=== PATIENT | female | born 1980 | race Caucasian/White ===

== ENCOUNTER 2017-08-18 20:54 | Emergency (ER) | payer SELFPAY ==
[2017-08-18 23:22] LABS: Hematocrit 41 % (35-47); Mean Corpuscular HGB Conc 34 g/dl (31-36); Mean Corpuscular Hemoglobin 29 pg (27-31); Mean Corpuscular Volume 86 fL (80-97); Mean Platelet Volume 10 um3 (7.4-10.4); Red Cell Distribution Width 13 % (10.5-15); White Blood Count 11.8 10^3/ul (3.5-10.8)
[2017-08-18] MEDS ORDERED: Albuterol/Ipratropium NEB.SOL* Albuterol 2.5 MG/Ipratropium 0.5 MG 3 ML INH ONE (23:27)
[2017-08-18 23:38] LABS: Albumin 4.1 g/dL (3.2-5.2); BUN/Creatinine Ratio 13.3 (8-20); Calcium 9.1 mg/dL (8.6-10.3); EGFR African American 89.6 (>60); EGFR Non-African American 69.7 (>60); Globulin 3.1 g/dL (2-4); Potassium 3.8 mmol/L (3.5-5.0); Total Bilirubin 1.1 mg/dL (0.2-1.0); Total Protein 7.2 g/dL (6.4-8.9)
[2017-08-19] MEDS: NS 0.9% 1000 ML* 2,000 ML IV ONE ×2 (00:05→02:27)
[2017-08-19] MEDS ORDERED: Acetaminophen TAB* 325 MG PO ONE (01:11)
[2017-08-19] MEDS ORDERED: Morphine INJ* 4 MG/ML 1 ML CARPUJECT IV ONE (01:11)
[2017-08-19 01:14] LABS: C Reactive Protein 19.98 mg/L (< 5.00)
[2017-08-19] MEDS ORDERED: Levofloxacin 750 MG IVPREMIX(* 750 MG/150 ML BAG IVPB ONE (01:15)
[2017-08-19] MEDS ORDERED: HYDROmorphone INJ* 1 MG/ML CARPUJECT SYRINGE IV SLOW PU ONE (02:56)
[2017-08-19 03:39] VITALS: BP 108/59
--- NOTE | 2017-08-19 03:45 | ED ---
Laurence Buck Alfonso, scribed for Nasima Cerda MD on 08/18/17 at 2330 . HPI Febrile Illness - HPI Summary HPI Summary: This patient is a 37 year old F presenting to [facility] accompanied by boyfriend with a chief complaint of febrile illness since 4 days ago. The patient rates the pain 8/10 in severity. Symptoms alleviated by nothing. Patient reports chills, diaphoresis, N/V/D, coughing, headache, CP (heaviness and sharp since 1230 today), and palpitations. 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 She denies recent travels and BCP use. Tobacco abuse disorder. PMHx includes asthma and HTN. FHX blood clots and CAD. - History of Current Complaint Chief Complaint: EDChestPainROMI Hx Obtained From: Patient Onset/Duration: Started Days Ago - 4 Timing: Constant Current Severity: Moderate Pain Intensity: 8 Pain Scale Used: 0-10 Numeric Alleviating Factors: Nothing Associated Signs and Symptoms: Other: - reports chills, diaphoresis, N/V/D, coughing, headache, CP (heaviness and sharp since 1230 today), and palpitations - Allergy/Home Medications Allergies/Adverse Reactions: Allergies Allergy/AdvReac Type Severity Reaction Status Date / Time No Known Allergies Allergy Verified 08/18/17 21:10 PMH/Surg Hx/FS Hx/Imm Hx Endocrine/Hematology History: Reports: Hx Diabetes - borderline Cardiovascular History: Reports: Hx Hypertension, Other Cardiovascular Problems/ Disorders - ARRHYTHMIA Respiratory History: Reports: Hx Asthma - Surgical History Surgery Procedure, Year, and Place: stents for kidney stones. intestinal mesh Infectious Disease History: No Infectious Disease History: Denies: Traveled Outside the [place] in Last 30 Days - Family History Known Family History: Positive: Cardiac Disease - mother, brother, sister, Other - blood clots (grandmother) - Social History Alcohol Use: Rare Substance Use Type: Reports: None Smoking Status (MU): Current Every Day Smoker Review of Systems Positive: Fever, Chills, Skin Diaphoresis Positive: Palpitations, Chest Pain Positive: Cough Positive: Vomiting, Diarrhea, Nausea Positive: Headache All Other Systems Reviewed And Are Negative: Yes Physical Exam - Summary Physical Exam Summary: General: Mildly ill appearing, no pain distress, mildly uncomfortable. Skin: Warm, Skin Color Reflects Adequate Perfusion, Dry Eyes: EOMI, NIKITA ENT: Pharynx normal, TMs normal Neck: Supple, nontender Respiratory: CTA, breath sounds present, no rhonchi, no wheezes, no rales Cardiovascular: RRR, no murmur, no rub, no gallop Abdomen: Soft, nontender, Non-distended, no guarding, no rebound Bowel: Present Musculoskeletal: KRYSTA, No edema Neuro: Sensory/motor intact, A&Ox3, CN intact 2-12 Psych: Affect/mood appropriate Triage Information Reviewed: Yes Vital Signs On Initial Exam: Initial Vitals Temp Pulse Resp BP Pulse Ox 99.2 F 106 20 133/85 95 08/18/17 21:09 08/18/17 21:09 08/18/17 21:09 08/18/17 21:09 08/18/17 21:09 Vital Signs Reviewed: Yes Diagnostics - Vital Signs Vital Signs Temp Pulse Resp BP Pulse Ox 08/18/17 23:24 101.0 F 08/18/17 23:22 100 97 08/18/17 23:19 122/79 08/18/17 21:09 99.2 F 106 20 133/85 95 - Laboratory Lab Results: Lab Results 08/18/17 Range/Units 23:11 WBC 11.8 H (3.5-10.8) 10^3/ul RBC 4.80 (4.0-5.4) 10^6/ul Hgb 14.0 (12.0-16.0) g/dl Hct 41 (35-47) % MCV 86 (80-97) fL MCH 29 (27-31) pg MCHC 34 (31-36) g/dl RDW 13 (10.5-15) % Plt Count 201 (150-450) 10^3/ul MPV 10 (7.4-10.4) um3 Neut % (Auto) 86.2 H (38-83) % Lymph % (Auto) 8.1 L (25-47) % [place] % (Auto) 4.5 (1-9) % Eos % (Auto) 0.5 (0-6) % Baso % (Auto) 0.7 (0-2) % Absolute Neuts (auto) 10.1 H (1.5-7.7) 10^3/ul Absolute Lymphs (auto) 1.0 (1.0-4.8) 10^3/ul Absolute Monos (auto) 0.5 (0-0.8) 10^3/ul Absolute Eos (auto) 0.1 (0-0.6) 10^3/ul Absolute Basos (auto) 0.1 (0-0.2) 10^3/ul Absolute Nucleated RBC 0.01 10^3/ul Nucleated RBC % 0 Result Diagrams: 08/18/17 23:11 08/18/17 23:11 Lab Statement: Any lab studies that have been ordered have been reviewed, and results considered in the medical decision making process. - Radiology CXR Radiology Interpretation Completed By: ED Physician - Negative - EKG 2102 Cardiac Rate: NL - BPM 89 EKG Rhythm: Sinus Rhythm EKG Interpretation: NAD Course/Dx - Course Course Of Treatment: this 37 yo female with asthma and tob use did clean out a house with mice/rat feces. Pt started with diarrhea and then fever,cough and headache. In the differential would be legionella (neg urine today), tularemia , hantavirus and salmonella. Cultures are pending, in general there seems to be some overlap with quinolones in salmonella and tularemia so her respiratory symptms with fever will be treated with levaquin and pt will followup with pmd - Diagnoses Provider Diagnoses: Bronchitis, Fever Discharge - Discharge Plan Condition: Stable Disposition: HOME Prescriptions: HYDROcodone/ACETAMIN 5-325 MG* [Seeley 5-325 TAB*] 2 tab PO Q8H PRN #18 tab MDD 3 PRN Reason: Pain Levofloxacin TAB* [Levaquin TAB*] 750 mg PO DAILY #6 tab Patient Education Materials: Fever in Adults (ED), Acute Bronchitis (ED), Viral Syndrome (ED) Referrals: Cordell OLIVEIRA,Abe Cabrera [Primary Care Provider] - 3 Days Additional Instructions: RETURN TO THE EMERGENCY DEPARTMENT FOR CHANGING OR WORSENING SYMPTOMS. The documentation as recorded by the Laurence walters Alfonso accurately reflects the service I personally performed and the decisions made by , Nasima Cerda MD.
[2017-08-19] MEDS ORDERED: HYDROcodone/ACETAMIN 5-325 MG* 1 TAB PO ONE (03:51)
--- NOTE | 2017-08-19 07:46 | RAD ---
HISTORY: Cough, chest pain COMPARISONS: November 02, 2016 VIEWS: 4: Frontal dual-energy and lateral views of the chest. FINDINGS: CARDIOMEDIASTINAL SILHOUETTE: The cardiomediastinal silhouette is normal. DION: The dion are normal. PLEURA: The costophrenic angles are sharp. No pleural abnormalities are noted. LUNG PARENCHYMA: The lungs are clear. ABDOMEN: The upper abdomen is clear. There is no subphrenic gas. BONES AND SOFT TISSUES: No bone or soft tissue abnormalities are noted. OTHER: None. IMPRESSION: NO ACTIVE CARDIOPULMONARY DISEASE.
== END 2017-08-19 03:58 | disposition home or self-care (01) ==
LOC: ED 20:54
DX: J40 Bronchitis, not specified as acute or chronic (principal); R11.2 Nausea with vomiting, unspecified; R19.7 Diarrhea, unspecified; R05 Cough; R51 Headache; R07.9 Chest pain, unspecified; F17.210 Nicotine dependence, cigarettes, uncomplicated
CPT/HCPCS: 36415; 71020; 80053; 83605; 84484; 85025; 86140; 87040; 87899; 93005; 94640; 96374; 99283; A9270-GY; J1170; J2270

== ENCOUNTER 2018-07-27 11:15 | Emergency (ER) | payer SELFPAY ==
[2018-07-27 11:21] VITALS: BP 141/81
--- NOTE | 2018-07-27 11:32 | ED ---
Respiratory - HPI Summary HPI Summary: 38 female presents for the past 2 days. She admits occasional shortness breath or cough. her cough ss productive. No fevers. She denies any sinus congestion. No sore throat. No nausea or vomiting. States she coughs sometimes she gets dizzy. She is a smoker. She denies any chest pain. She has history of asthma and has been using inhaler. She has been taking robitussin. - History of Current Complaint Chief Complaint: UCRespiratory Stated Complaint: COUGH Time Seen by Provider: 07/27/18 11:24 Pain Intensity: 6 - Allergy/Home Medications Allergies/Adverse Reactions: Allergies Allergy/AdvReac Type Severity Reaction Status Date / Time No Known Allergies Allergy Verified 07/27/18 11:21 Home Medications: Home Medications Lisinopril TAB* [Prinivil TAB 5 MG*] 5 mg PO DAILY 07/27/18 [History Confirmed 07/27/18] PMH/Surg Hx/FS Hx/Imm Hx Endocrine/Hematology History: Reports: Hx Diabetes - borderline Cardiovascular History: Reports: Hx Hypertension, Other Cardiovascular Problems/ Disorders - ARRHYTHMIA Respiratory History: Reports: Hx Asthma - Surgical History Surgery Procedure, Year, and Place: stents for kidney stones. intestinal mesh Infectious Disease History: No Infectious Disease History: Denies: Traveled Outside the [place] in Last 30 Days - Family History Known Family History: Positive: Cardiac Disease - mother, brother, sister, Other - blood clots (grandmother) - Social History Alcohol Use: Rare Substance Use Type: Reports: None Smoking Status (MU): Current Every Day Smoker Review of Systems Negative: Fever Negative: Chest Pain Positive: Shortness Of Breath, Cough Negative: Abdominal Pain All Other Systems Reviewed And Are Negative: Yes Physical Exam Triage Information Reviewed: Yes Vital Signs On Initial Exam: Initial Vitals Temp Pulse Resp BP Pulse Ox 98.8 F 72 16 141/81 100 07/27/18 11:19 07/27/18 11:19 07/27/18 11:19 07/27/18 11:19 07/27/18 11:19 Vital Signs Reviewed: Yes Appearance: Positive: Well-Appearing Skin: Positive: Warm, Dry Head/Face: Positive: Normal Head/Face Inspection Eyes: Positive: Normal, EOMI, NIKITA, Conjunctiva Clear ENT: Positive: Normal ENT inspection, Pharynx normal, TMs normal Neck: Positive: Supple, Nontender, No Lymphadenopathy Respiratory/Lung Sounds: Positive: Breath Sounds Present, Other - congestion clears with cough Cardiovascular: Positive: Normal, RRR Abdomen Description: Positive: Nontender, Soft Bowel Sounds: Positive: Present Musculoskeletal: Positive: Normal Neurological: Positive: Normal Psychiatric: Positive: Normal Diagnostics - Vital Signs Vital Signs Temp Pulse Resp BP Pulse Ox 07/27/18 11:19 98.8 F 72 16 141/81 100 - Laboratory Lab Statement: Any lab studies that have been ordered have been reviewed, and results considered in the medical decision making process. - Radiology chest Xray Interpretation: No Acute Changes Radiology Interpretation Completed By: Radiologist Disposition - Course Course Of Treatment: 38 female presents for the past 2 days. She admits occasional shortness breath or cough. her cough is productive. No fevers. She denies any sinus congestion. No sore throat. No nausea or vomiting. States she coughs sometimes she gets dizzy. She is a smoker. She denies any chest pain. She has history of asthma and has been using inhaler. She has been taking robitussin. On exam some congestion in lungs noted that clears when she coughs. Pharynx normal. Chest x-ray shows nad. patient had a diagnosis of high blood pressure and follow-up with primary about such. We'll prescribe steroids and Robitussin for cough. Patient understands agrees with plan. - Differential Dx - Cardiopulmonary Differential Diagnoses - Cardiopulmonary: Bronchitis, Influenza, Lower Resp Infection - Diagnoses Provider Diagnoses: Bronchitis, Hypertension Discharge - Sign-Out/Discharge Documenting (check all that apply): Patient Departure All imaging exams completed and their final reports reviewed: Yes - Discharge Plan Condition: Good Disposition: HOME Prescriptions: guaiFENesin/CODIEN 100MG-10MG* [Robitussin AC 100Mg-10Mg*] 5 ml PO Q6H PRN #100 ml MDD 20ml PRN Reason: Cough predniSONE TAB* [Deltasone TAB*] 50 mg PO DAILY #5 tab Patient Education Materials: Acute Bronchitis (ED) Forms: *Work Release Referrals: Cordell OLIVEIRA,Abe Cabrera [Primary Care Provider] - Additional Instructions: Take cough medication 5ml (1 teaspoon) every 6 hours as needed cough Use inhaler up to two puffs every 4-6 hours for cough Take steroid once a day for 5 days Take Tylenol or ibuprofen for pain every 6 hours Return to ED if develop any new or worsening symptoms - Billing Disposition and Condition Condition: GOOD Disposition: Home - Attestation Statements Provider Attestation: I was available for consult. This patient was seen by the WILFRIDO. The patient was not presented to, seen by, or examined by me. -Kevin
--- NOTE | 2018-07-27 11:51 | RAD ---
HISTORY: cough COMPARISONS: August 18, 2017 VIEWS: 4: Frontal dual-energy and lateral views of the chest. FINDINGS: CARDIOMEDIASTINAL SILHOUETTE: The cardiomediastinal silhouette is normal. DION: The dion are normal. PLEURA: The costophrenic angles are sharp. No pleural abnormalities are noted. LUNG PARENCHYMA: The lungs are clear. ABDOMEN: The upper abdomen is clear. There is no subphrenic gas. BONES AND SOFT TISSUES: No bone or soft tissue abnormalities are noted. OTHER: None. IMPRESSION: NO ACTIVE CARDIOPULMONARY DISEASE.
== END 2018-07-27 12:05 | disposition home or self-care (01) ==
LOC: UCEAST 11:15
DX: J20.9 Acute bronchitis, unspecified (principal); I10 Essential (primary) hypertension; F17.200 Nicotine dependence, unspecified, uncomplicated
CPT/HCPCS: 71046; 99212; G0463